=== PATIENT | male | born 1940 | race Caucasian/White ===

== ENCOUNTER 2016-12-03 08:54 | Emergency (ER) | payer MEDICARE, OTHER ==
[~2016-12-03] VITALS: Ht 170.2 cm; Wt 75.0 kg
[2016-12-03 08:56] VITALS: BP 144/78; PULSE 76; RESP 18; TEMP 98.4; O2SAT 96
[2016-12-03] MEDS ORDERED: SODIUM CHLORIDE 0.9% FLUSH 5 ML FLUSH IVF PRN (09:15)
--- NOTE | 2016-12-03 09:15 | PD ---
HPI Chief Complaint: Musculoskeletal Complaint Time Seen by Provider: 09:07 Travel History International Travel<30 days: No Contact w/Intl Traveler<30days: No Traveled to known affect area: No History of Present Illness HPI 76-year-old male here for evaluation of right leg pain and swelling. The patient reports right leg pain and swelling for the last 2 weeks. He is from [place] and is here with his for the winter. He called his primary care physician up in [place] yesterday and they suggested that he go to the emergency department for evaluation. The patient denies trauma. No fevers or chills. No chest pain or dyspnea. Pain is mainly in his calf and radiates up into his right posterior thigh. No history of DVT or PE. No known history of cancer. He did drive down from [place] to [place] about one month ago. [facility] Social History Tobacco Use: Yes Allergies-Medications (Allergen,Severity, Reaction): Coded Allergies: No Known Allergies (Unverified , 12/03/16) Reported Meds & Prescriptions Reported Meds & Active Scripts Active Xarelto (Rivaroxaban) 20 Mg Tab 20 Mg PO DAILY 30 Days Xarelto (Rivaroxaban) 15 Mg Tab 15 Mg PO Q12HR 28 Days Reported Omeprazole 20 Mg Tab 20 Mg PO DAILY Review of Systems Except as stated in HPI: all other systems reviewed are Neg Physical Exam Narrative GENERAL: Pleasant, well-developed, well-nourished, comfortable, no acute distress. SKIN: Warm and dry. Right leg with mild erythema and warmth, no red streaks. HEAD: Atraumatic. Normocephalic. EYES: Pupils equal and round. No scleral icterus. No injection or drainage. ENT: Mucous membranes pink and moist. NECK: Trachea midline. No JVD. CARDIOVASCULAR: Regular rate and rhythm. Distal pulses brisk and equal bilaterally. RESPIRATORY: No accessory muscle use. Clear to auscultation. Breath sounds equal bilaterally. GASTROINTESTINAL: Abdomen soft, non-tender, nondistended. MUSCULOSKELETAL: No obvious deformities. No clubbing. No cyanosis. Moderate edema of right lower extremity from foot to knee with posterior calf and posterior thigh tenderness. All compartments in right lower extremity are supple. Skin exam as above. Left lower extremity is without edema and without tenderness. NEUROLOGICAL: Awake and alert. No obvious cranial nerve deficits. Motor grossly within normal limits. Normal speech. PSYCHIATRIC: Appropriate mood and affect; insight and judgment normal. Data Data Last Documented VS Vital Signs Date Time Temp Pulse Resp B/P Pulse Ox O2 Delivery O2 Flow Rate FiO2 12/03/16 12:50 57 16 121/64 97 12/03/16 11:49 Room Air 12/03/16 08:56 98.4 Orders Basic Metabolic Panel (Bmp) (12/03/16 09:12) Complete Blood Count With Diff (12/03/16 09:12) Prothrombin Time / Inr (Pt) (12/03/16 09:12) Act Partial Throm Time (Ptt) (12/03/16 09:12) Iv Access Insert/Monitor (12/03/16 09:12) Ecg Monitoring (12/03/16 09:12) Oximetry (12/03/16 09:12) Sodium Chloride 0.9% Flush (Ns Flush) (12/03/16 09:15) B-Type Natriuretic Peptide (12/03/16 09:12) Us Leg Venous Doppler Bilat (12/03/16 ) Rivaroxaban (Xarelto) (12/03/16 12:30) Labs Laboratory Tests Test 12/03/16 09:30 White Blood Count 5.5 TH/MM3 Red Blood Count 5.44 MIL/MM3 Hemoglobin 18.6 GM/DL Hematocrit 54.7 % Mean Corpuscular Volume 100.6 FL Mean Corpuscular Hemoglobin 34.2 PG Mean Corpuscular Hemoglobin 34.0 % Concent Red Cell Distribution Width 16.2 % Platelet Count 162 TH/MM3 Mean Platelet Volume 8.4 FL Neutrophils (%) (Auto) 53.6 % Lymphocytes (%) (Auto) 29.9 % Monocytes (%) (Auto) 11.0 % Eosinophils (%) (Auto) 4.6 % Basophils (%) (Auto) 0.9 % Neutrophils # (Auto) 2.9 TH/MM3 Lymphocytes # (Auto) 1.6 TH/MM3 Monocytes # (Auto) 0.6 TH/MM3 Eosinophils # (Auto) 0.3 TH/MM3 Basophils # (Auto) 0.0 TH/MM3 CBC Comment AUTO DIFF Differential Comment AUTO DIFF CONFIRMED Prothrombin Time 11.8 SEC Prothromb Time International 1.1 RATIO Ratio Activated Partial 26.0 SEC Thromboplast Time Sodium Level 137 MEQ/L Potassium Level 3.9 MEQ/L Chloride Level 99 MEQ/L Carbon Dioxide Level 29.1 MEQ/L Anion Gap 9 MEQ/L Blood Urea Nitrogen 6 MG/DL Creatinine 0.85 MG/DL Estimat Glomerular Filtration 88 ML/MIN Rate Random Glucose 97 MG/DL Calcium Level 8.7 MG/DL B-Type Natriuretic Peptide 28 PG/ML [facility] Medical Decision Making Medical Screen Exam Complete: Yes Emergency Medical Condition: Yes Differential Diagnosis DVT, cellulitis, venous insufficiency, fluid overload Narrative Course Vital signs show heart rate 76, blood pressure 144/70, pulse ox 96% on room air , oral temp of 98.4F. CBC is remarkable for hemoglobin 18.6, hematocrit 54.7, MCV 100.6, MCH 34.2 BMP is unremarkable. BNP is 28 Bilateral lower extremity duplex: Extensive DVT throughout the right lower extremity. Case discussed with meat processor live ammunition inspector Dr. Banks. The patient may have polycythemia vera. He recommends starting the patient on Xarelto and having him follow-up as an outpatient. The patient will be given information to follow -up with his clinic. He will also be given the number to the physician referral service to find a local primary care physician. He was given a card for the first 30 days of Xarelto for free. Patient was made aware of all findings and a plan. He was informed on when to return to the emergency department. He verbalizes understanding and agreement with plan. Diagnosis Primary Impression: DVT (deep venous thrombosis) Qualified Code: I82.401 - Acute deep vein thrombosis (DVT) of right lower extremity, unspecified vein Additional Impression: Elevated hemoglobin Additional Instructions: Follow-up with meat processor Dr. Banks this week. Follow-up with a primary care physician this week. Takes Xarelto as prescribed. Return to the emergency department for worsening symptoms or any other concerns. Call [phone] and ask for the physician referral service. Scripts Rivaroxaban (Xarelto)20 Mg Tab20 Mg PO DAILY 30 Days Ref 0 Prov:Zachary Blair MD 12/03/16 Rivaroxaban (Xarelto)15 Mg Tab15 Mg PO Q12HR 28 Days Ref 0 Prov:Zachary Blair MD 12/03/16 Disposition: 01 DISCHARGE HOME Condition: Stable Zachary Blair MD Dec 03, 2016 09:15
[2016-12-03] MEDS ORDERED: OMEP20TA PO (09:17)
[2016-12-03 09:48] LABS: AUTOMATED NEUTROPHIL # 2.9 TH/MM3 (1.8-7.7); BASOPHIL % 0.9 % (0.0-2.0); EOSINOPHIL # 0.3 TH/MM3 (0-0.4); EOSINOPHIL % 4.6 % (0.0-4.0); HEMATOCRIT 54.7 % (39.0-51.0); LYMPH % 29.9 % (9.0-44.0); LYMPHOCYTE # 1.6 TH/MM3 (1.0-4.8); MEAN CELL VOLUME 100.6 FL (80.0-100.0); MEAN CORPUSCULAR HEMOGLOBIN 34.2 PG (27.0-34.0); NEUT % 53.6 % (16.0-70.0); PLATELET COUNT 162 TH/MM3 (150-450); RED BLOOD COUNT 5.44 MIL/MM3 (4.50-5.90); RED CELL DISTRIBUTION WIDTH 16.2 % (11.6-17.2); WHITE BLOOD COUNT 5.5 TH/MM3 (4.0-11.0)
[2016-12-03 09:49] LABS: INTERNATIONAL NORMALIZED RATIO 1.1 RATIO; PROTHROMBIN TIME - PATIENT 11.8 SEC (9.8-11.6)
[2016-12-03 09:50] LABS: HEMO FLAGS AUTO DIFF
[2016-12-03 09:56] LABS: BICARBONATE 29.1 MEQ/L (21.0-32.0); POTASSIUM 3.9 MEQ/L (3.5-5.1)
[2016-12-03 10:23] LABS: SCAN/DIFF AUTO DIFF CONFIRMED
--- NOTE | 2016-12-03 11:39 | RADRPT ---
EXAM DATE/TIME: 12/03/2016 10:50 [facility] COMPARISON: No previous studies available for comparison. INDICATIONS : Bilateral leg swelling. MEDICAL HISTORY : Gastroesophageal reflux disease. SURGICAL HISTORY : None. ENCOUNTER: Initial ACUITY: 2 weeks PAIN SCORE: 5/10 LOCATION: Bilateral leg. TECHNIQUE: Venous ultrasound of the left and right leg was performed from the inguinal ligament to the proximal calf. Real-time, color Doppler and spectral tracing, compression and augmentation techniques were us ed. FINDINGS: RIGHT LEG: The examination demonstrates fairly extensive DVT seen within the right lower extremity. There is par tially occlusive thrombus seen in the mid femoral vein and posterior tibial vein. There is occlusive thrombus present within the right popliteal and peroneal veins. LEFT LEG: There is normal compressibility of the deep venous system from the inguinal region to the proximal ca lf. No echogenic clot is seen in the lumen of the common femoral, femoral, popliteal, and posterior tibial veins. There is a normal response of the venous system to proximal and distal augmentation an d respiration. CONCLUSION: 1. Extensive DVT throughout the right lower extremity. Mickey Booth MD on December 03, 2016 at 11:36 Board Certified Radiologist. This report was verified electronically.
[2016-12-03 11:49] VITALS: BP 119/63; PULSE 65; RESP 17; O2SAT 98
[2016-12-03] MEDS ORDERED: XARE15TA PO (12:26)
[2016-12-03] MEDS ORDERED: XARE20TA PO (12:26)
[2016-12-03] MEDS ORDERED: RIVAROXABAN 15 MG TAB PO ONE (12:30)
[2016-12-03 12:50] VITALS: BP 121/64
[2017-01-02] MEDS ORDERED: XARE20TA PO (10:48)
== END 2016-12-03 12:53 | disposition home or self-care (01) ==
LOC: NEPC 08:54
DX: I82.401 Acute embolism and thrombosis of unspecified deep veins of right lower extremity (principal); D58.2 Other hemoglobinopathies; M79.89 Other specified soft tissue disorders; Z72.0 Tobacco use
CPT/HCPCS: 80048; 83880; 85025; 85610; 85730; 93970

== ENCOUNTER → 2016-12-25 | Outpatient (CLI) | payer MEDICARE, OTHER ==
[~2016-12-25] MED LIST: OMEP20TA PO; XARE15TA PO; XARE20TA PO
[2016-12-25 08:59] LABS: HEMATOCRIT 55.7 % (39.0-51.0); MEAN CORPUSCULAR HEMOGLOBIN 34.1 PG (27.0-34.0); MEAN CORPUSCULAR HGB CONC 33.8 % (32.0-36.0); PLATELET COUNT 114 TH/MM3 (150-450); RED BLOOD COUNT 5.52 MIL/MM3 (4.50-5.90); RED CELL DISTRIBUTION WIDTH 15.7 % (11.6-17.2); REVIEW FLAG FINAL; WHITE BLOOD COUNT 3.8 TH/MM3 (4.0-11.0)
[2016-12-25 09:00] LABS: INTERNATIONAL NORMALIZED RATIO 1.4 RATIO; PROTHROMBIN TIME - PATIENT 15.9 SEC (9.8-11.6)
[2016-12-25 09:43] LABS: BICARBONATE 31.4 MEQ/L (21.0-32.0); POTASSIUM 4.3 MEQ/L (3.5-5.1)
== END ==
LOC: CLAB 08:27
PROVIDERS: ATTEND Internal Medicine Geriatric Medicine
DX: D58.2 Other hemoglobinopathies (principal); I82.409 Acute embolism and thrombosis of unspecified deep veins of unspecified lower extremity; Z79.01 Long term (current) use of anticoagulants
CPT/HCPCS: 36415; 80048; 82607; 82746; 85027; 85610

== ENCOUNTER 2016-12-26 08:37 | Emergency (ER) | payer MEDICARE, OTHER ==
[~2016-12-26] VITALS: Ht 175.3 cm; Wt 75.0 kg
[~2016-12-26 08:37] MED LIST changes: -XARE20TA PO
[2016-12-26 08:39] VITALS: BP 146/68; PULSE 62; RESP 16; TEMP 97.9; O2SAT 95
[2016-12-26 11:37] LABS: INTERNATIONAL NORMALIZED RATIO 1.4 RATIO; PROTHROMBIN TIME - PATIENT 15.6 SEC (9.8-11.6)
[2016-12-26 11:41] LABS: AUTOMATED NEUTROPHIL # 1.3 TH/MM3 (1.8-7.7); BASOPHIL # 0.1 TH/MM3 (0-0.2); BASOPHIL % 1.4 % (0.0-2.0); EOSINOPHIL # 0.2 TH/MM3 (0-0.4); HEMATOCRIT 59.3 % (39.0-51.0); LYMPH % 48.5 % (9.0-44.0); LYMPHOCYTE # 1.8 TH/MM3 (1.0-4.8); MEAN CELL VOLUME 101.7 FL (80.0-100.0); MEAN CORPUSCULAR HEMOGLOBIN 33.7 PG (27.0-34.0); MEAN CORPUSCULAR HGB CONC 33.2 % (32.0-36.0); MONO % 10.9 % (0.0-8.0); NEUT % 33.2 % (16.0-70.0); PLATELET COUNT 98 TH/MM3 (150-450); RED BLOOD COUNT 5.83 MIL/MM3 (4.50-5.90); RED CELL DISTRIBUTION WIDTH 15.5 % (11.6-17.2); WHITE BLOOD COUNT 3.8 TH/MM3 (4.0-11.0)
[2016-12-26 11:43] LABS: HEMO FLAGS AUTO DIFF
[2016-12-26 11:45] LABS: BICARBONATE 26.6 MEQ/L (21.0-32.0); POTASSIUM 4.8 MEQ/L (3.5-5.1)
--- NOTE | 2016-12-26 12:13 | PD ---
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 Patient reports that he was seen on December 03, 2016 and was diagnosed with the blood clot in his right lower extremity. Patient reports that he is not sure how he developed this blood clot, he did drive from [place] to [place] with his for the winter. He was started on Xarellto and did follow up with his primary care doctor 2 weeks ago. Patient reports that the pain and cramping and swelling to his right lower extremity has improved over the past 2 weeks, patient concerned as he still has significant swelling to his right lower extremity. Patient with no chest pain or shortness of breath at this time. Patient reports that he has been compliant with his medications. PFSH Past Medical History Hx Anticoagulant Therapy: Yes (XARELTO) Diminished Hearing: No Deep Vein Thrombosis: Yes GERD: Yes Past Surgical History Other Surgery: Yes (dilated esophagus ) Social History Alcohol Use: Yes (DAILY, 4 BEERS) Tobacco Use: Yes Substance Use: No Allergies-Medications (Allergen,Severity, Reaction): Coded Allergies: No Known Allergies (Unverified , 12/12/16) Reported Meds & Prescriptions Reported Meds & Active Scripts Active Xarelto (Rivaroxaban) 15 Mg Tab 15 Mg PO Q12HR 28 Days Reported Omeprazole 20 Mg Tab 20 Mg PO DAILY Review of Systems General / Constitutional: No: Fever Eyes: No: Visual changes HENT: No: Headaches Cardiovascular: No: Chest Pain or Discomfort Respiratory: No: Shortness of Breath Gastrointestinal: No: Abdominal Pain Genitourinary: No: Dysuria Musculoskeletal: Positive: Edema (right lower extremity swelling) Skin: No Rash Neurologic: No: Weakness Psychiatric: No: Depression Endocrine: No: Polydipsia Hematologic/Lymphatic: No: Easy Bruising Physical Exam Narrative GENERAL: nad, nontoxic SKIN: Warm and dry. HEAD: Atraumatic. Normocephalic. EYES: Pupils equal and round. No scleral icterus. No injection or drainage. ENT: No nasal bleeding or discharge. Mucous membranes pink and moist. NECK: Trachea midline. No JVD. CARDIOVASCULAR: Regular rate and rhythm. No murmur appreciated. RESPIRATORY: No accessory muscle use. Clear to auscultation. Breath sounds equal bilaterally. GASTROINTESTINAL: Abdomen soft, non-tender, nondistended. Hepatic and splenic margins not palpable. MUSCULOSKELETAL: No obvious deformities. No clubbing. No cyanosis. +1 edema to RLE, pulses intact, neurovascularly intact NEUROLOGICAL: Awake and alert. No obvious cranial nerve deficits. Motor grossly within normal limits. Normal speech. PSYCHIATRIC: Appropriate mood and affect; insight and judgment normal. Data Data Last Documented VS Vital Signs Date Time Temp Pulse Resp B/P Pulse Ox O2 Delivery O2 Flow Rate FiO2 12/26/16 08:39 97.9 62 16 146/68 95 Orders Basic Metabolic Panel (Bmp) (12/26/16 10:51) Complete Blood Count With Diff (12/26/16 10:51) Prothrombin Time / Inr (Pt) (12/26/16 10:51) Act Partial Throm Time (Ptt) (12/26/16 10:51) Iv Access Insert/Monitor (12/26/16 10:51) Us Leg Venous Doppler (12/26/16 ) Labs Laboratory Tests Test 12/26/16 11:10 White Blood Count 3.8 TH/MM3 Red Blood Count 5.83 MIL/MM3 Hemoglobin 19.7 GM/DL Hematocrit 59.3 % Mean Corpuscular Volume 101.7 FL Mean Corpuscular Hemoglobin 33.7 PG Mean Corpuscular Hemoglobin 33.2 % Concent Red Cell Distribution Width 15.5 % Platelet Count 98 TH/MM3 Mean Platelet Volume 8.6 FL Neutrophils (%) (Auto) 33.2 % Lymphocytes (%) (Auto) 48.5 % Monocytes (%) (Auto) 10.9 % Eosinophils (%) (Auto) 6.0 % Basophils (%) (Auto) 1.4 % Neutrophils # (Auto) 1.3 TH/MM3 Lymphocytes # (Auto) 1.8 TH/MM3 Monocytes # (Auto) 0.4 TH/MM3 Eosinophils # (Auto) 0.2 TH/MM3 Basophils # (Auto) 0.1 TH/MM3 CBC Comment AUTO DIFF Differential Comment AUTO DIFF CONFIRMED Platelet Estimate LOW Platelet Morphology Comment NORMAL Prothrombin Time 15.6 SEC Prothromb Time International 1.4 RATIO Ratio Activated Partial 33.0 SEC Thromboplast Time Sodium Level 135 MEQ/L Potassium Level 4.8 MEQ/L Chloride Level 101 MEQ/L Carbon Dioxide Level 26.6 MEQ/L Anion Gap 7 MEQ/L Blood Urea Nitrogen 6 MG/DL Creatinine 0.82 MG/DL Estimat Glomerular Filtration 92 ML/MIN Rate Random Glucose 93 MG/DL Calcium Level 8.8 MG/DL MDM Medical Decision Making Medical Screen Exam Complete: Yes Emergency Medical Condition: Yes Interpretation(s) Vital Signs Date Time Temp Pulse Resp B/P Pulse Ox O2 Delivery O2 Flow Rate FiO2 12/26/16 08:39 97.9 62 16 146/68 95 Laboratory Tests Test 12/26/16 11:10 White Blood Count 3.8 TH/MM3 (4.0-11.0) Red Blood Count 5.83 MIL/MM3 (4.50-5.90) Hemoglobin 19.7 GM/DL (13.0-17.0) Hematocrit 59.3 % (39.0-51.0) Mean Corpuscular Volume 101.7 FL (80.0-100.0) Mean Corpuscular Hemoglobin 33.7 PG (27.0-34.0) Mean Corpuscular Hemoglobin 33.2 % Concent (32.0-36.0) Red Cell Distribution Width 15.5 % (11.6-17.2) Platelet Count 98 TH/MM3 (150-450) Mean Platelet Volume 8.6 FL (7.0-11.0) Neutrophils (%) (Auto) 33.2 % (16.0-70.0) Lymphocytes (%) (Auto) 48.5 % (9.0-44.0) Monocytes (%) (Auto) 10.9 % (0.0-8.0) Eosinophils (%) (Auto) 6.0 % (0.0-4.0) Basophils (%) (Auto) 1.4 % (0.0-2.0) Neutrophils # (Auto) 1.3 TH/MM3 (1.8-7.7) Lymphocytes # (Auto) 1.8 TH/MM3 (1.0-4.8) Monocytes # (Auto) 0.4 TH/MM3 (0-0.9) Eosinophils # (Auto) 0.2 TH/MM3 (0-0.4) Basophils # (Auto) 0.1 TH/MM3 (0-0.2) CBC Comment AUTO DIFF Prothrombin Time 15.6 SEC (9.8-11.6) Prothromb Time International 1.4 RATIO Ratio Activated Partial 33.0 SEC Thromboplast Time (24.3-30.1) Sodium Level 135 MEQ/L (136-145) Potassium Level 4.8 MEQ/L (3.5-5.1) Chloride Level 101 MEQ/L (98-107) Carbon Dioxide Level 26.6 MEQ/L (21.0-32.0) Anion Gap 7 MEQ/L (5-15) Blood Urea Nitrogen 6 MG/DL (7-18) Creatinine 0.82 MG/DL (0.60-1.30) Estimat Glomerular Filtration 92 ML/MIN (>89) Rate Random Glucose 93 MG/DL (74-106) Calcium Level 8.8 MG/DL (8.5-10.1) Differential Diagnosis DVT, PE Narrative Course Patient is a 76-year-old male who returns to emergency room for evaluation of swelling to his right lower extremity. He shouldn't reports that he was diagnosed with a DVT to his right lower extremity on the December 03, 2016. He has been on Xarrelto since then and has been compliant with his medications. Patient reports resolution of cramping and pain, reports that he still has increased swelling to his extremity. Patient here for reevaluation of his DVT. Patient did see his primary care doctor in the office, Dr. Kennedy on - BMP, CBC, Perdue, INR, vit B 12 ordered for outpt studies. Patient was to be seen in office again 3 weeks from initial visit. It was with the patient follow-up with hematology for his DVT CBC & BMP Diagram 12/26/16 11:10 Last Impressions Lower Extremity Ultrasound 12/26/16 0000 Signed Impressions: Service Date/Time: Monday, December 26, 2016 11:17 - CONCLUSION: Extensive right lower extremity deep venous thrombosis as above. Obed Fernández MD Ultrasound report from December 03, 2016: Fairly extensive DVT seen in the right lower extremity. There is a partially occlusive thrombus seen in the mid femoral vein and posterior tibial vein. There is an occlusive thrombus present within the right popliteal and peroneal veins. Ultrasound from today shows again extensive DVT in the right lower extremity. There is a non-occlusive thrombus in the right peripheral superficial femoral vein with occlusive thrombus in the popliteal and trifurcation tributaries. Given that overall, is resolution of right calf pain and swelling has decreased since he was diagnosed with the DVT 2 weeks ago, plan to have patient to continue to have patient continue on Xarelto. Patient with no new clots at this time, denies cp/sob. Signs and symptoms of when to return to the emergency room was reviewed with patient in detail. A copy of patient's ultrasound report was given to him. Patient will follow-up with his primary care doctor this week. 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
[2016-12-26 12:21] LABS: PLATELET ESTIMATE SMEAR LOW (NORMAL); PLATELET MORPHOLOGY NORMAL (NORMAL); SCAN/DIFF AUTO DIFF CONFIRMED
--- NOTE | 2016-12-26 12:39 | RADRPT ---
EXAM DATE/TIME: 12/26/2016 11:17 [facility] COMPARISON: No previous studies available for comparison. INDICATIONS : Right leg swelling. MEDICAL HISTORY : Gastroesophageal reflux disease. Deep venous thrombosis. Anticoagulant therapy, Xarelto. SURGICAL HISTORY : None. ENCOUNTER: Subsequent ACUITY: 3 weeks PAIN SCORE: 3/10 LOCATION: Right leg. TECHNIQUE: Venous ultrasound of the leg was performed from the inguinal ligament to the proximal calf. Real-allie e, color Doppler and spectral tracing, compression and augmentation techniques were used. FINDINGS: Extensive DVT in the right lower extremity. Nonocclusive thrombus in the right peripheral superficial femoral vein with occlusive thrombus in the popliteal and trifurcation tributaries. CONCLUSION: Extensive right lower extremity deep venous thrombosis as above. Obed Fernández MD on December 26, 2016 at 12:32 Board Certified Radiologist. This report was verified electronically.
[2017-01-02] MEDS ORDERED: XARE20TA PO (10:48)
== END 2016-12-26 14:26 | disposition home or self-care (01) ==
LOC: NEPB 08:37
DX: I82.501 Chronic embolism and thrombosis of unspecified deep veins of right lower extremity (principal); Z79.01 Long term (current) use of anticoagulants
CPT/HCPCS: 80048; 85025; 85610; 85730; 93971